=== PATIENT | female | born 1980 | race Caucasian/White ===

== ENCOUNTER 2017-07-15 18:45 | Emergency (ER) | payer OTHER ==
[~2017-07-15] VITALS: Ht 162.6 cm; Wt 52.2 kg
[~2017-07-15 18:45] MED LIST: ALBU90I INH; ALBU90OI INH; ALBU90OI61 INH; AMOX875 PO; AZIT250 PO; BENZ100A PO; CEFD300 PO; CLAR500 PO; CYCL10 PO; GABA100 PO; HYDACE5 PO; HYDGUAL120 PO; HYDHOMSY PO; IBUP600 PO; IBUP800 PO; LEVO750 PO; MEDR150I; Mucinex600 MG PO; NAPR375 PO; NAPR500 PO; NAPR550 PO; NORETHTP; Naprosyn500 MG PO; Neurontin 100100 MG PO; PROACE100 PO; PRODEXEL PO; PROM25 PO; Phenergan25 M1 PO; Prednisone20 MG PO; RXCYCL10 PO; RXHYDGUAS PO; RXPROACE PO; TRAM50 PO; Ultram50 MG PO; Zithromax250 MG PO
== END 2017-07-15 20:40 | disposition home or self-care (01) ==
LOC: ER 18:45
DX: M25.531 Pain in right wrist (principal); Z88.5 Allergy status to narcotic agent; Z88.8 Allergy status to other drugs, medicaments and biological substances; F17.200 Nicotine dependence, unspecified, uncomplicated
CPT/HCPCS: 29105; 73110; 99283

== ENCOUNTER 2019-04-11 10:37 | Emergency (ER) | payer OTHER ==
[~2019-04-11] VITALS: Ht 162.6 cm; Wt 49.9 kg
[2019-04-11] MEDS ORDERED: CYCL10 PO (12:33)
== END 2019-04-11 12:42 | disposition home or self-care (01) ==
LOC: ER 10:37
DX: S09.90XA Unspecified injury of head, initial encounter (principal); S16.1XXA Strain of muscle, fascia and tendon at neck level, initial encounter; S39.012A Strain of muscle, fascia and tendon of lower back, initial encounter; F17.200 Nicotine dependence, unspecified, uncomplicated; Z88.6 Allergy status to analgesic agent; Z88.5 Allergy status to narcotic agent; Z91.018 Allergy to other foods; Z88.8 Allergy status to other drugs, medicaments and biological substances; V89.2XXA Person injured in unspecified motor-vehicle accident, traffic, initial encounter
CPT/HCPCS: 70450; 71046; 72100; 72125; 99284-25; A9270-GY

== ENCOUNTER 2019-08-10 07:17 | Emergency (ER) | payer SELFPAY ==
[~2019-08-10] VITALS: Ht 162.6 cm; Wt 52.2 kg
[2019-08-10] MEDS ORDERED: IBUP600 PO (07:48)
[2019-08-10] MEDS ORDERED: Veetids 500500 MG PO (07:48)
[2019-08-10] MEDS ORDERED: Ultram50 MG PO (07:48)
== END 2019-08-10 07:55 | disposition home or self-care (01) ==
LOC: ER 07:17
DX: K08.89 Other specified disorders of teeth and supporting structures (principal); F17.200 Nicotine dependence, unspecified, uncomplicated; Z88.5 Allergy status to narcotic agent; Z91.018 Allergy to other foods; Z88.8 Allergy status to other drugs, medicaments and biological substances
CPT/HCPCS: 99282

== ENCOUNTER 2020-04-13 14:54 | Emergency (ER) | payer SELFPAY ==
[~2020-04-13] VITALS: Ht 167.6 cm; Wt 59.0 kg
[~2020-04-13 14:54] MED LIST changes: +Veetids 500500 MG PO
== END 2020-04-13 15:50 | disposition home or self-care (01) ==
LOC: ER 14:54
DX: S40.021A Contusion of right upper arm, initial encounter (principal); S00.81XA Abrasion of other part of head, initial encounter; F17.200 Nicotine dependence, unspecified, uncomplicated; Z88.5 Allergy status to narcotic agent; Z91.02 Food additives allergy status; Z88.8 Allergy status to other drugs, medicaments and biological substances; W34.00XA Accidental discharge from unspecified firearms or gun, initial encounter
CPT/HCPCS: 96372; 99282-25; J1885

== ENCOUNTER → 2020-10-20 | Outpatient (CLI) | payer OTHER | END | disposition home or self-care (01) | LOC: LAB 07:39 → LAB SHORT 07:39 | DX: D48.5 Neoplasm of uncertain behavior of skin (principal) | CPT/HCPCS: 88305 ==